=== PATIENT | female | born 1965 | race Caucasian/White ===

== ENCOUNTER → 2018-06-08 | Outpatient (CLI) | payer OTHER ==
--- NOTE | 2018-06-09 08:22 | MM ---
Reason for exam: screening (asymptomatic). Last mammogram was performed 3 years and 8 months ago. History: Patient is postmenopausal, history of other cancer, and is nulliparous. Family history of breast cancer in paternal cousin at age 55. Physical Findings: A clinical breast exam by your physician is recommended on an annual basis and results should be correlated with mammographic findings. MG 3D Screening Mammo W/Cad Bilateral CC and MLO view(s) were taken. Prior study comparison: October 14, 2014, bilateral MG screening mammo w CAD. December 17, 2012, bilateral digital screening mammo w/CAD. The breast tissue is heterogeneously dense. This may lower the sensitivity of mammography. No suspicious abnormality. No significant changes when compared with prior studies. ASSESSMENT: Negative, BI-RAD 1 RECOMMENDATION: Routine screening mammogram of both breasts in 1 year.
== END | disposition home or self-care (01) ==
LOC: RADMAMWWP 10:31
PROVIDERS: ATTEND Family Medicine
DX: Z12.31 Encounter for screening mammogram for malignant neoplasm of breast (principal)
CPT/HCPCS: 77063; 77067

== ENCOUNTER → 2024-01-16 | Outpatient (CLI) | payer OTHER ==
--- NOTE | 2024-01-25 17:16 | MM ---
Reason for Exam: Screening (asymptomatic). Last mammogram was performed 5 year(s) and 8 month(s) ago. Patient History: Menarche at age 15. Patient has no children. Postmenopausal. Other cancer. Paternal cousin (tasneem) had breast cancer, age 55. Risk Values: Xiao 5 year model risk: 1.3%. NCI Lifetime model risk: 8.0%. Prior Study Comparison: 12/17/2012 Bilateral Screening Mammogram, [facility]. 10/14/2014 Bilateral Screening Mammogram, [facility]. 06/08/2018 Bilateral Screening Mammogram, [facility]. Tissue Density: The breasts are heterogeneously dense, which may obscure small masses. Findings: Analyzed By CAD. The pattern is symmetrical. No significant interval change No suspicious groups of microcalcifications, spiculated or lobular masses, architectural distortion or other secondary signs of malignancy are mammographically apparent. Overall Assessment: Benign, BI-RAD 2 Management: Screening Mammogram of both breasts in 1 year. A negative mammogram report should not preclude additional follow up of suspicious palpable abnormalities. Patient should continue monthly self breast exam. A clinical breast exam by your physician is recommended on an annual basis and results should be correlated with mammographic findings. Note on Xiao scores and lifetime risk: 1. A Xiao score greater than 3% is considered moderate risk. If this is the case, consider specialist referral to assess eligibility for a risk reducing agent. 2. If overall lifetime risk for the development of breast cancer is 20% or higher, the patient may qualify for future screening with alternating mammogram and breast MRI. [facility], , 01/25/2024 5:13 PM. Electronically signed and approved by: Ti Boyle D.O. Radiologis
== END | disposition home or self-care (01) ==
LOC: RADMAMWWP 13:35
PROVIDERS: ATTEND Internal Medicine Geriatric Medicine
DX: Z12.31 Encounter for screening mammogram for malignant neoplasm of breast (principal); Z78.0 Asymptomatic menopausal state; Z80.3 Family history of malignant neoplasm of breast; R92.333 Mammographic heterogeneous density, bilateral breasts
CPT/HCPCS: 77063; 77067

== ENCOUNTER → 2024-03-30 | Outpatient (CLI) | payer OTHER ==
--- NOTE | 2024-03-30 21:15 | US ---
EXAMINATION TYPE: US transvaginal DATE OF EXAM: 03/30/2024 COMPARISON: NONE CLINICAL INDICATION: Female, 58 years old with history of R102 PELVIC PAIN; pain TECHNIQUE: Transvaginal (TV). FINDINGS: EXAM MEASUREMENTS: Uterus: 5.7 x 2.4 x 4.2 cm Endometrial Stripe: .6 cm 1. Uterus: Anteverted wnl 2. Endometrium: Fluid visualized .7 x .3 x .9 cm. .4 x .4 cm. 3. Right Ovary: Obscured by overlying bowel gas 4. Left Ovary: Obscured by overlying bowel gas 5. Bilateral Adnexa: wnl 6. Posterior cul-de-sac: wnl IMPRESSION: 1. Small amount of fluid within the endometrial canal. [facility], , 03/30/2024 9:13 PM
--- NOTE | 2024-03-30 21:18 | US ---
EXAMINATION TYPE: US kidneys/renal and bladder DATE OF EXAM: 03/30/2024 COMPARISON: NONE CLINICAL INDICATION: Female, 58 years old with history of N39.0 Urinary tract infection; hematuria TECHNIQUE: Grayscale imaging of the bilateral kidneys and urinary bladder: FINDINGS: EXAM MEASUREMENTS: Right Kidney: 9.9 x 3.4 x 5.0 cm Left Kidney: 9.8 x 4.5 x 4.1 cm Right Kidney: echogenic area seen mid pole with twinkle sign. Left Kidney: No hydronephrosis or masses seen Bladder: echogenic area seen .9 x .9 cm. Right urinary bladder may be at the right ureterovesical riri ction without hydroureter. Bilateral Jets seen: Yes IMPRESSION: 1. There may be a nonobstructing nonshadowing renal stone is within the right kidney. 2. Suggestion of a small calcification at the right ureterovesical junction without obstruction [facility], , 03/30/2024 9:15 PM
== END | disposition home or self-care (01) ==
LOC: RADUSWWP 15:49
PROVIDERS: ATTEND Internal Medicine Geriatric Medicine
DX: N39.0 Urinary tract infection, site not specified (principal); N85.8 Other specified noninflammatory disorders of uterus; R31.9 Hematuria, unspecified
CPT/HCPCS: 76770; 76830